=== PATIENT | male | born 2005 | race Two or more races ===

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

== ENCOUNTER 2025-05-26 10:17 | Emergency (ER) | payer MEDICAID ==
[~2025-05-26] VITALS: Ht 195.6 cm; Wt 117.6 kg
[~2025-05-26 10:17] MED LIST changes: +MET500T PO; +PRED20TA2 PO
--- NOTE | 2025-05-26 10:49 | ED.PDOC ---
General HPI Comments This is a 19 year old male presenting to the ED with chief complaint of hematuria. Patient reports that he has been experiencing hematuria since last night with associated bilateral flank pain. Patient relays that he is also having associated fever and dribbling since this morning, worried he may have a UTI or kidney stone. Patient states his flank pain became a 10/10 when urinating. Patient denies any N/V/D, abdominal pain, chills, or dysuria. Chief Complaint: Urinary Time Seen by MD: 10:47 Primary Care Provider: FLORY Reviewed notes: Nurses Notes, Medications, Allergies Allergies: Coded Allergies: NO KNOWN ALLERGIES (Unverified , 10/15/21) Home Meds Active Scripts Metronidazole (Metronidazole) 500 Mg Tab, 500 MG PO BID for 5 Days, #10 TAB Prov:CRYSTAL COTTRELL MD 12/05/23 Prednisone (Prednisone) 20 Mg Tab, 20 MG PO BID PRN for 4 Days, #10 MG Prov:CRYSTAL COTTRELL MD 12/05/23 Loperamide HCl (Loperamide HCl) 2 Mg Tab, 2 MG PO TIDP, #30 TAB 0 Refills Prov:HOLLIS JOHNSON 10/17/22 Ciprofloxacin Hcl (Ciprofloxacin Hcl) 500 Mg Tab, 1 TAB PO BID for 7 Days, #14 TAB 0 Refills Prov:HOLLIS JOHNSON 10/17/22 Loperamide HCl (Imodium A-D) 2 Mg Cap, 2 MG PO TID, #20 CAP Prov:MANOJ MAXWELL 10/08/22 Dicyclomine Hcl (BENTYL CAPSULE) 10 Mg Cp, 20 MG PO BID, #30 CAP Prov:MANOJ MAXWELL 10/08/22 Information Source: Patient Mode of Arrival: Ambulatory Severity: Moderate Timing: Hours Duration: Since onset Prehospital treatment: None Onset: Spontaneous Symptoms: Hematuria History of: None Location: (R) Flank, (L)Flank Penile discharge: None Modifying factors: None associated signs and symptoms: Flank Pain, Hematuria Past Medical History PAST MEDICAL HISTORY: Asthma, Depression Surgical History: Denies all surgeries Family History Family History: Reviewed,noncontributory to illness, Unknown Social History Smoker: Non-Smoker Alcohol: Denies ETOH Use Drugs: Denies Drug Use Lives In: Home Constitutional: denies: chills, diaphoresis, fatigue, fever, malaise, sweats, weakness, others EENTM: denies: blurred vision, double vision, ear bleeding, ear discharge, ear drainage, ear pain, ear ringing, eye pain, eye redness, hearing loss, mouth pain, mouth swelling, nasal discharge, nose bleeding, nose congestion, nose pain, photophobia, tearing, throat pain, throat swelling, voice changes, others Respiratory: denies: cough, hemoptysis, orthopnea, SOB at rest, shortness of breath, SOB with excertion, stridor, wheezing, others Cardiovascular: denies: chest pain, dizzy spells, diaphoresis, Dyspnea on exertion, edema, irregular heart beat, left arm pain, lightheadedness, palpitations, PND, syncope, others Gastrointestinal: denies: abdomen distended, abdominal pain, blood streaked bowels, constipated, diarrhea, dysphagia, difficulty swallowing, hematemesis, melena, nausea, poor appetite, poor fluid intake, rectal bleeding, rectal pain, vomiting, others Genitourinary: reports: flank pain, hematuria; denies: burning, dysuria, frequency, incontinence, penile discharge, penile sore, pain, testicle pain, testicle swelling, urgency, others Neurological: denies: dizziness, fainting, headache, left sided numbness, left sided weakness, numbness, paresthesia, pre-existing deficit, right sided numbness, right sided weakness, seizure, speech problems, tingling, tremors, weakness, others Musculoskeletal: denies: back pain, gout, joint pain, joint swelling, muscle pain, muscle stiffness, neck pain, others Integumetry: denies: bruises, change in color, change in hair/nails, dryness, laceration, lesions, lumps, rash, wounds, others Allergic/Immunocompromised: denies: Difficulty Healing, Frequent Infections, Hives, Itching, others Hematologic/Lymphatic: denies: anemia, blood clots, easy bleeding, easy bruising, swollen glands, others Endocrine: denies: excessive hunger, excessive sweating, excessive thirst, excessive urination, flushing, intolerance to cold, intolerance to heat, unexplained weight gain, unexplained weight loss, others Psychiatric: denies: anxiety, bipolar disorder, depression, hopeless, panic disorder, schizophrenia, sleepless, suicidal, others All Other Systems: Reviewed and Negative Physical Exam General Appearance: Moderate Distress, Normal HEENT: Normal ENT Inspection, Pharynx Normal, TMs Normal Neck: Full Range of Motion, Non-Tender, Normal, Normal Inspection Respiratory: Chest Non-Tender, Lungs Clear, No Accessory Muscle Use, No Respiratory Distress, Normal Breath Sounds Cardiovascular: No Edema, No JVD, No Murmur, No Gallop, Normal Peripheral Pulses, Regular Rate/Rhythm Breast Exam: Deferred Gastrointestinal: No Organomegaly, Non Tender, No Pulsatile Mass, Normal Bowel Sounds, Soft Genitalia: Deferred Pelvic: Deferred Rectal: Deferred Extremities: No calf tenderness, Normal capillary refill, Normal inspection, Normal range of motion, Non-tender, No pedal edema Musculoskeletal : Apperance: Normal Neurologic: Alert, 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 Was a procedure done?: No Differential Diagnosis Kidney stone (Female): N/A Kidney stone (Male): Pyelonephritis, Urolithiasis, Urinary tract infection X-Ray, Labs, Meds, VS Vital Signs Date Time Temp Pulse Resp B/P (MAP) Pulse Ox O2 Delivery O2 Flow Rate FiO2 05/26/25 10:21 97.2 125 18 110/71 94 97.2 Lab Test 05/26/25 11:20 Range/Units Urine Color Yellow Yellow Urine Clarity Turbid H Clear Urine pH 6.5 5.0-9.0 Urine Specific [place] 1.025 1.001-1.035 Urine Protein Trace H Negative Urine Ketones Negative Negative Urine Blood 2+ H Negative /uL Urine Nitrite Negative Negative Urine Bilirubin Negative Negative Urine Urobilinogen Normal Negative mg/dL Urine Leukocyte Esterase 3+ Negative /uL Urine RBC 36 0 - 3 /hpf Urine Microscopic WBC 156 H 0-3 /HPF Urine Squamous Epithelial Cells Few <5 /hpf Urine Bacteria Mod H None Seen /hpf Urine Glucose Normal Normal mg/dL Current Medications Medications (Trade) Dose Ordered Sig/Agustina Route Start Time Stop Time Status Last Admin Sodium Chloride 1,000 ml @ 1,000 mls/hr Q1H ONCE IV 05/26/25 10:45 05/26/25 11:44 DC 05/26/25 12:04 Tamsulosin HCl (Flomax) 0.4 mg ONCE ONCE PO 05/26/25 10:45 05/26/25 10:46 DC 05/26/25 12:05 Ketorolac Tromethamine (Toradol Injection) 30 mg ONCE ONCE IV 05/26/25 10:45 05/26/25 10:46 DC 05/26/25 12:05 Patient alert. Complaining of blood in the urine. Vitals stable. Answering questions. Establish intravenous access. Was given fluids. Was given Flomax. Explained to the patient. Was told to follow up with his primary care physician. Was told to come back if there is any problem. Time of 1ST Reevaluation: 11:46 Reevaluation 1ST: Improved Patient Education/Counseling: Diagnosis, Treatment Family Education/Counseling: No Family Present SEPSIS Sepsis Screen Date sepsis recognized/suspect: May 26, 2025 Time Sepsis recognized/suspect: 102 Recent Procedure: No On Antibiotic Therapy: No Respiratory Rate >20: No Heart Rate >90: Yes Temp<36 C (96.8 F) or >38.3 C: No SBP <90 or MAP <65 mmHG: No New Acute Mental Status Change: No Is the patient on CPAP, BIPAP,: No Vital Signs Date Time Temp Pulse Resp B/P (MAP) Pulse Ox O2 Delivery O2 Flow Rate FiO2 05/26/25 10:21 97.2 125 18 110/71 94 97.2 Medications Medications Dose Ordered Sig/Agustina Route Start Time Stop Time Status Last Admin Dose Admin Ketorolac Tromethamine 30 mg ONCE ONCE IV 05/26/25 10:45 05/26/25 10:46 DC 05/26/25 12:05 Sodium Chloride 1,000 ml @ 1,000 mls/hr Q1H ONCE IV 05/26/25 10:45 05/26/25 11:44 DC 05/26/25 12:04 Tamsulosin HCl 0.4 mg ONCE ONCE PO 05/26/25 10:45 05/26/25 10:46 DC 05/26/25 12:05 Departure 1 Departure Time of Disposition: 11:32 Impression: Primary Impression: Dehydration Additional Impression: UTI (urinary tract infection) Qualified Codes: N30.00 - Acute cystitis without hematuria Disposition: 01 HOME / SELF CARE / HOMELESS Condition: Good e-Prescriptions Cephalexin (KEFLEX CAPSULE) 250 Mg Cp 250 MG PO QID for 5 Days, #20 BOTTLE Prov: BEATRIZ CHAPA MD 05/26/25 Discharged With: Self Critical Care Note Critical Care Time?: No Stability Stability form required: No Heart Score Heart Score: Heart Score Response (Comments) Value History N/A 0 EKG N/A 0 Age N/A 0 Risk Factors N/A 0 Troponin N/A 0 Total 0 I personally scribed for BEATRIZ CHAPA MD ([email or web address]) on 05/26/25 at 10:49. Electronically submitted by Luis Waller ([email or web address]). BEATRIZ CHAPA MD May 26, 2025 10:49
[2025-05-26 11:33] LABS: Urine Protein, UAD TRACE (Negative)
[2025-05-26] MEDS: SODIUM CHLORIDE 0.9% 1,000 ML IV ONE (12:04)
[2025-05-26] MEDS: KETOROLAC TROMETH 30 MG/ML 1ML VIAL IV ONE (12:05)
[2025-05-26] MEDS: TAMSULOSIN HYDROCHLORIDE 0.4 MG CAP PO ONE (12:05)
[2025-05-26] MEDS ORDERED: CEPH250C PO (12:28)
[2025-05-26 12:56] VITALS: BP 114/55; PULSE 111; RESP 17; TEMP 98.7; O2SAT 95
== END 2025-05-26 12:58 | disposition home or self-care (01) ==
LOC: ER 10:17
DX: N39.0 Urinary tract infection, site not specified (principal); E86.0 Dehydration; J45.909 Unspecified asthma, uncomplicated; F32.A Depression, unspecified; Z79.899 Other long term (current) drug therapy
CPT/HCPCS: 81001; 96361; 96374; 99283; J1885; J7030